=== PATIENT | male | born 1980 | race Caucasian/White ===

== ENCOUNTER 2016-11-24 01:48 | Emergency (ER) | payer OTHER ==
--- NOTE | 2016-11-24 03:01 | EDPHY ---
H & P Stated Complaint: hearing voices, difficulty sleeping for 2 weeks, anxiety Source: Patient Exam Limitations: No limitations - Personal History Current Tetanus/Diphtheria Vaccine: Unsure Current Tetanus Diphtheria and Acellular Pertussis (TDAP): Unsure - Medical/Surgical History Hx Asthma: No Hx Chronic Respiratory Disease: No Hx Diabetes: No Hx Cardiac Disease: No Hx Renal Disease: No Hx Cirrhosis: No Hx Alcoholism: No Hx HIV/AIDS: No Hx Splenectomy or Spleen Trauma: No Other PMH: PTSD, 2 TBI, anxiety, appendectomy, left side facial reconstruction, - Social History Smoking Status: Former smoker Time Seen by Provider: 11/24/16 02:13 HPI/ROS: HPI The patient presents with 2 weeks of auditory hallucinations, not feeling himself in general, anxiety and insomnia. He comes in because he is concerned about mold in his house which is causing a variety of symptoms. He spoke with a friend that told him that he should be evaluated and that is what caused him to come in. He says the voices that he is hearing comes from demons and the metaphysical world. He wonders if he has some healing properties within his body. He has a history of PTSD and is followed at the [facility]. He occasionally takes Xanax for his symptoms, though denies taking it recently because he is out. He admits to alcohol use and stimulant use including cocaine and amphetamines to treat his symptoms. He has not slept well recently. He is not taking care of himself, bathing or showering. REVIEW OF SYSTEMS Constitutional: No fever, no chills. Eyes: No discharge. ENT: No sore throat. Cardiovascular: No chest pain, no palpitations. Respiratory: No cough, no shortness of breath. Gastrointestinal: No abdominal pain, no vomiting. Genitourinary: No hematuria. Musculoskeletal: No back pain. Skin: No rashes. Neurological: + headache. PMHx: History of PTSD Soc Hx: Lives in an apartment, concerned that it has black mold in it, , has completed 2 tours in [place] PHYSICAL General Appearance: Alert, disheveled, poor hygiene Eyes: Pupils equal and round no pallor or injection ENT, Mouth: Mucous membranes moist Respiratory: There are no retractions, lungs are clear to auscultation Cardiovascular: Regular rate and rhythm Gastrointestinal: Abdomen is soft and non-tender, no masses, bowel sounds normal Neurological: A&O, moves all extremities Skin: Warm and dry, no rashes Musculoskeletal: Neck is supple non tender Extremities: symmetrical, full range of motion Psychiatric: Patient is oriented X 3, there is no agitation (Archana Dudley) Constitutional: Initial Vital Signs Temperature (C) 36.3 C 11/24/16 01:53 Heart Rate 81 11/24/16 01:53 Respiratory Rate 18 11/24/16 01:53 Blood Pressure 126/73 H 11/24/16 01:53 O2 Sat (%) 95 11/24/16 01:53 O2 Delivery Mode Room Air Allergies/Adverse Reactions: cephalexin Allergy (Severe, Verified 11/24/16 01:59) Anaphylaxis Home Medications: Medication Instructions Recorded Xanax 11/24/16 Medical Decision Making ED Course/Re-evaluation: 6:00 a.m.- The patient has been stable throughout his time in the emergency room. He has been mostly sleeping. Labs so far unremarkable, we are currently awaiting a urine toxicology screen. The case will be signed out at change of shift to Dr. Machuca. (Archana Dudley) Differential Diagnosis: This is a 36-year-old male with PTSD who presents from home with insomnia, auditory hallucinations, concerns about mold in his current apartment. He does not have any history of psychosis from what I can tell. He does admit to some drug use. Differential diagnosis includes psychotic break, polysubstance abuse, PTSD. The patient is calm and cooperative and agrees to mental health evaluation. We plan to check basic labs and we will have the mental health team see him. I have not placed him on an M1 hold as he does not appear to have any suicidal or homicidal ideation. (Archana Dudley) Other Provider: Care assumed at 7:00 a.m. with plan for urine tox followed by mental health evaluation for psychosis. Per primary evaluating physician Dr. Dudley, patient does not meet criteria for mental health hold. The patient had a medical screening evaluation performed. There does not appear to be an acute emergent medical or surgical condition which would preclude psychiatric evaluation at this time. Mental health evaluation is requested at 739. Apparently the patient left before mental health evaluation was completed. I did not personally evaluate the patient. (Deangelo Machuca) - Data Points Laboratory Results: Laboratory Results 11/24/16 02:54 11/24/16 02:54 11/24/16 11/24/16 11/24/16 07:00 02:54 02:54 WBC RBC Hgb Hct MCV MCH MCHC RDW Plt Count MPV Neut % (Auto) Lymph % (Auto) [place] % (Auto) Eos % (Auto) Baso % (Auto) Nucleat RBC Rel Count Absolute Neuts (auto) Absolute Lymphs (auto) Absolute Monos (auto) Absolute Eos (auto) Absolute Basos (auto) Absolute Nucleated RBC Immature Gran % Immature Gran # Sodium 139 mEq/L mEq/L (134-144) Potassium 3.7 mEq/L mEq/L (3.5-5.2) Chloride 103 mEq/L mEq/L (97-110) Carbon Dioxide 25 mEq/l mEq/l (22-31) Anion Gap 11 mEq/L mEq/L (8-16) BUN 11 mg/dL mg/dL (7-23) Creatinine 0.9 mg/dL mg/dL (0.7-1.3) Estimated GFR > 60 Glucose 95 mg/dL mg/dL (70-100) Calcium 9.3 mg/dL mg/dL (8.5-10.4) Total Bilirubin 1.0 mg/dL mg/dL (0.1-1.4) AST 28 IU/L IU/L (17-59) ALT 35 IU/L IU/L (21-72) Alkaline Phosphatase 84 IU/L IU/L (38-126) Total Protein 6.9 g/dL g/dL (6.3-8.2) Albumin 4.2 g/dL g/dL (3.5-5.0) Urine Opiates Screen NEGATIVE (NEGATIVE) Urine Barbiturates NEGATIVE (NEGATIVE) Ur Phencyclidine Scrn NEGATIVE (NEGATIVE) Ur Amphetamine Screen NEGATIVE (NEGATIVE) U Benzodiazepines Scrn NON-NEGATIVE H (NEGATIVE) Urine Cocaine Screen NEGATIVE (NEGATIVE) U Marijuana (THC) Screen NON-NEGATIVE H (NEGATIVE) Ethyl Alcohol < 10 mg/dL mg/dL (0-10) 11/24/16 02:54 WBC 10.82 10^3/uL H 10^3/uL (3.80-9.50) RBC 4.46 10^6/uL 10^6/uL (4.40-6.38) Hgb 13.9 g/dL g/dL (13.7-17.5) Hct 39.2 % L % (40.0-51.0) MCV 87.9 fL fL (81.5-99.8) MCH 31.2 pg pg (27.9-34.1) MCHC 35.5 g/dL g/dL (32.4-36.7) RDW 13.8 % % (11.5-15.2) Plt Count 238 10^3/uL 10^3/uL (150-400) MPV 9.9 fL fL (8.7-11.7) Neut % (Auto) 69.0 % % (39.3-74.2) Lymph % (Auto) 18.9 % % (15.0-45.0) [place] % (Auto) 9.3 % % (4.5-13.0) Eos % (Auto) 1.8 % % (0.6-7.6) Baso % (Auto) 0.6 % % (0.3-1.7) Nucleat RBC Rel Count 0.0 % % (0.0-0.2) Absolute Neuts (auto) 7.47 10^3/uL H 10^3/uL (1.70-6.50) Absolute Lymphs (auto) 2.04 10^3/uL 10^3/uL (1.00-3.00) Absolute Monos (auto) 1.01 10^3/uL H 10^3/uL (0.30-0.80) Absolute Eos (auto) 0.20 10^3/uL 10^3/uL (0.03-0.40) Absolute Basos (auto) 0.06 10^3/uL 10^3/uL (0.02-0.10) Absolute Nucleated RBC 0.00 10^3/uL 10^3/uL (0-0.01) Immature Gran % 0.4 % % (0.0-1.1) Immature Gran # 0.04 10^3/uL 10^3/uL (0.00-0.10) Sodium Potassium Chloride Carbon Dioxide Anion Gap BUN Creatinine Estimated GFR Glucose Calcium Total Bilirubin AST ALT Alkaline Phosphatase Total Protein Albumin Urine Opiates Screen Urine Barbiturates Ur Phencyclidine Scrn Ur Amphetamine Screen U Benzodiazepines Scrn Urine Cocaine Screen U Marijuana (THC) Screen Ethyl Alcohol Departure - Departure Disposition: Against Medical Advice Clinical Impression: Acute psychosis, PTSD (post-traumatic stress disorder) Condition: Good Instructions: [facility] Referrals: NONE *PRIMARY CARE P,. [Primary Care Provider] - As per Instructions [facility],. [Clinic] - As per Instructions [facility] [Clinic] - As per Instructions
[2016-11-24 03:07] LABS: % IMMATURE GRANULYOCYTES 0.4 % (0.0-1.1); ABSOLUTE IMMATURE GRANULOCYTES 0.04 10^3/uL (0.00-0.10); ADD DIFF? NO; ADD MORPH? NO; ADD SCAN? NO; ATYPICAL LYMPHOCYTE FLAG 0 (0-99); FRAGMENT RBC FLAG 0 (0-99); HEMATOCRIT 39.2 % (40.0-51.0); HEMOGLOBIN 13.9 g/dL (13.7-17.5); LEFT SHIFT FLG 0 (0-99); LIPEMIA HEMOLYSIS FLAG 90 (0-99); MEAN CELL HEMOGLOBIN 31.2 pg (27.9-34.1); MEAN CELL HEMOGLOBIN CONCENTR. 35.5 g/dL (32.4-36.7); MEAN CELL VOLUME 87.9 fL (81.5-99.8); MEAN PLATELET VOLUME 9.9 fL (8.7-11.7); PLATELET CLUMPS FLAG 0 (0-99); PLATELET COUNT 238 10^3/uL (150-400); RED BLOOD CELL COUNT 4.46 10^6/uL (4.40-6.38); RED CELL DISTRIBUTION WIDTH 13.8 % (11.5-15.2)
[2016-11-24 03:20] LABS: ALANINE AMINOTRANSFERASE 35 IU/L (21-72); ALBUMIN 4.2 g/dL (3.5-5.0); ALKALINE PHOSPHATASE 84 IU/L (38-126); ANION GAP 11 mEq/L (8-16); ASPARTATE AMINOTRANSFERASE 28 IU/L (17-59); CALCIUM 9.3 mg/dL (8.5-10.4); CARBON DIOXIDE 25 mEq/l (22-31); CHLORIDE 103 mEq/L (97-110); CREATININE 0.9 mg/dL (0.7-1.3); GLOMERULAR FILTRATION RATE > 60; GLUCOSE 95 mg/dL (70-100); POTASSIUM 3.7 mEq/L (3.5-5.2); SODIUM 139 mEq/L (134-144); TOTAL PROTEIN 6.9 g/dL (6.3-8.2)
[2016-11-24 03:25] LABS: ETHANOL SERUM < 10 mg/dL (0-10)
[2016-11-24 08:21] VITALS: BP 97/56; PULSE 72; RESP 16; TEMP 97.7; O2SAT 98
== END 2016-11-24 09:35 | disposition left against medical advice (07) ==
DX: F23 Brief psychotic disorder (principal); F43.10 Post-traumatic stress disorder, unspecified; Z87.891 Personal history of nicotine dependence
CPT/HCPCS: 80305; G0480